=== PATIENT | female | born 2000 | race Caucasian/White ===

== ENCOUNTER 2020-03-16 21:15 | Emergency (ER) | payer OTHER ==
[2020-03-16 21:30] VITALS: BP 138/96; PULSE 86; TEMP 98.6; BMI 31.1
[2020-03-16] MEDS ORDERED: IBUPROFEN 600 MG TABLET (FP) PO ONE ×2 (21:32→21:35)
--- NOTE | 2020-03-16 21:36 | PDOC ---
History of Present Illness - General Chief Complaint: Injury Stated Complaint: LEFT ANKLE SPRAIN Time Seen by Provider: 03/16/20 21:32 History Source: Patient Exam Limitations: No Limitations - History of Present Illness Initial Comments: 03/16/20 21:33 HISTORY OF PRESENT ILLNESS: 19-year-old woman denies medical history presents emergency department for evaluation of left ankle pain status post hyperextension injury. Patient reports she was walking downstairs when she had 2 steps left she caught her toe on the tip of the step and hyperextended her ankle. Patient reports she fell to the ground and then proceeded to the emergency department for evaluation. No recent travel or sick contacts. PAST MEDICAL HISTORY: Denies past medical history SURGICAL HISTORY: Denies ALLERGIES: No known drug allergies REVIEW OF SYSTEMS General/Constitutional: Denies fever or chills. Denies weakness, weight change. HEENT: Denies change in vision. Denies ear pain or discharge. Denies sore throat. Cardiovascular: Denies chest pain or shortness of breath. Respiratory: Denies cough, wheezing, or hemoptysis. Gastrointestinal: Denies nausea, vomiting, diarrhea or constipation. Denies rectal bleeding. Genitourinary: Denies dysuria, frequency, or change in urination. Musculoskeletal: See HPI Skin and breasts: Denies rash or easy bruising. Neurologic: Denies headache, vertigo, loss of consciousness, or loss of sensation. Psychiatric: Denies depression or anxiety. Endocrine: Denies increased thirst. Denies abnormal weight change. Hematologic/Lymphatic: Denies anemia, easy bleeding, or history of blood clots. Allergic/Immunologic: Denies hives or skin allergy. Denies latex allergy. PHYSICAL EXAM General Appearance: Well-appearing, appropriately dressed. No apparent distres s, no intoxication. Vascular Pulses: Dorsalis-Pedis (R): 2+, Dorsalis-Pedis (L): 2+ Musculoskeletal/Extremities: Swelling present over the lateral malleolus of the left ankle. No bony tenderness, deformity, crepitus or step-off is present upon palpations of the bones of the lower leg, ankle and foot. No ecchymosis noted. Neurovascularly intact. Integumentary: Appropriate color, dry, warm. No cyanosis, erythema, jaundice or rash Past History - Medical History Allergies/Adverse Reactions: Allergies Allergy/AdvReac Type Severity Reaction Status Date / Time No Known Allergies Allergy Verified 06/11/13 22:17 Home Medications: Ambulatory Orders No Home Medications 0 dose .ROUTE UTDICT 06/11/13 COPD: No Other medical history: pcos - Immunization History Immunization Up to Date: Yes - Psycho-Social/Smoking History Smoking Status: No Smoking History: Never smoked Number of Cigarettes Smoked Daily: 0 - Substance Abuse Hx (Audit-C & DAST Scrn) How often the patient has a drink containing alcohol: Never Score: In Men: 4 or > Positive; In Women: 3 or > Positive: 0 Screen Result (Pos requires Nsg. Audit-10AR): Negative In the last yr the pt used illegal drug/Rx for NonMed reason: No Score: Yes response is considered Positive: 0 Screen Result (Positive result requires Nsg. DAST-10): Negative *Physical Exam - Vital Signs Last Vital Signs Temp Pulse Resp BP Pulse Ox 98.6 F 86 19 138/96 99 03/16/20 21:26 03/16/20 21:26 03/16/20 21:26 03/16/20 21:26 03/16/20 21:26 ED Treatment Course - RADIOLOGY Radiology Studies Ordered: Category Date Time Status ANKLE & FOOT-LEFT* [RAD] Stat Radiology 03/16/20 21:32 Ordered Medical Decision Making - Medical Decision Making 03/16/20 21:35 A/P: 19-year-old woman with left ankle pain status post hyperextension injury No bony deformity, crepitus, step-off present upon palpation of the bones of the left lower leg, ankle or foot Full range of motion of the left ankle including circumduction, extension and dorsiflexion 2+ DP pulses present bilaterally X-rays of the left foot and ankle Motrin 600 mg orally now Reassess 03/16/20 21:52 X-rays read by me: Mortise is intact. No acute fractures or dislocations are present. Aircast splint Jeancarlos wrap Discharge home with orthopedic follow-up I discussed the physical exam findings, ancillary test results and final diagnoses with the patient. I answered all of the patient's questions. The patient was satisfied with the care received and felt comfortable with the discharge plan and treatment plan. The patient will call their primary care physician within 24 hours to arrange follow-up and will return to the Emergency Department with any new, persistent or worsening symptoms. Portions of this note have been documented using voice recognition software. As a result, errors may occur in the e business manager process. Effort has been made to correct all grammatical and e business manager error, but some may have been missed which may produce sporadic inaccurate e business manager or nonsensical phrases. Discharge - Discharge Information Problems reviewed: Yes Clinical Impression/Diagnosis: Left ankle sprain Qualifiers: Encounter type: initial encounter Involved ligament of ankle: unspecified ligament Qualified Code(s): S93.402A - Sprain of unspecified ligament of left ankle, initial encounter Condition: Stable Disposition: HOME - Admission No - Follow up/Referral Referrals: Viet Shankar DO [Staff Physician] - - Patient Discharge Instructions Additional Instructions: You be given a referral for an orthopedist. Call to schedule appointment for reevaluation of your pain. Your emergency department visit is incomplete until you follow-up with your regular doctor. Take Tylenol 2-500 mg tablets every 6 hours as needed for pain. Take Motrin 3-200 mg tablets every 6 hours as needed for pain. These medications do not require a prescription as they are [id number]. Apply ice to affected areas to help relieve pain. Do not leave ice on for more than 20 minutes at a time. Return to the emergency department for any new or worsening symptoms. Thank you very much for choosing us to provide your emergent health care needs. - Post Discharge Activity Work/Back to School Note: Back to Work
== END 2020-03-16 22:28 | disposition home or self-care (01) ==
LOC: JER 21:15 → JERFT 21:15
DX: S93.402A Sprain of unspecified ligament of left ankle, initial encounter (principal); X50.9XXA Other and unspecified overexertion or strenuous movements or postures, initial encounter
CPT/HCPCS: 73610-TC-LT-FY; 73630-TC-LT; 99283-25

== ENCOUNTER 2020-10-20 00:14 | Emergency (ER) | payer OTHER ==
[2020-10-20 00:51] VITALS: BP 121/82; PULSE 83; TEMP 97.6; BMI 36.6
== END 2020-10-20 03:06 | disposition home or self-care (01) ==
LOC: JER 00:14
DX: S09.90XA Unspecified injury of head, initial encounter (principal)
CPT/HCPCS: 70450-TC; 99284-25

== ENCOUNTER 2023-02-04 14:26 | Emergency (ER) | payer OTHER ==
[2023-02-04 14:41] VITALS: BP 130/76; PULSE 100; RESP 18; TEMP 98.1; BMI 36.6
[2023-02-04] MEDS ORDERED: ACETAMINOPHEN 1000 MG/100 ML BAG IVPB ONE (15:04)
[2023-02-04] MEDS ORDERED: ONDANSETRON 4 MG TABLET PO ONE (15:12)
[2023-02-04] MEDS ORDERED: ACETAMINOPHEN INJECTION 100 ML IVPB ONE (15:13)
[2023-02-04] MEDS ORDERED: ONDANSETRON 4 MG/2 ML VIAL ONE (15:55)
[2023-02-04 16:07] LABS: BASO % 0.7 % (0-2.0); EOS % 1.4 % (0-4.5); HEMATOCRIT 37.8 % (32.4-45.2); HEMOGLOBIN 12.9 GM/dL (10.7-15.3); LYMPH % 22.5 % (8-40); MCH 29.2 pg (25.7-33.7); MCHC 34.1 g/dl (32.0-36.0); MEAN CELL VOLUME 85.4 fl (80-96); MONO % 4.3 % (3.8-10.2); NEUT % 71.1 % (42.8-82.8); PLATELET COUNT 305 10^3/uL (134-434); RBC 4.43 M/mm3 (3.60-5.2); RDW 14.2 % (11.6-15.6); WHITE BLOOD COUNT 11.6 K/mm3 (4.0-10.0)
[2023-02-04 16:18] LABS: EPI CELLS 6 /uL (0-25.1); HYALINE CASTS 2 /uL (0-3.1); PH,URINE 5.5 (5.0-8.0); URINE APPEARANCE CLEAR; URINE BACTERIA >9,000 /uL (0-1359); URINE BILIRUBIN NEGATIVE (NEGATIVE); URINE COLOR YELLOW; URINE GLUCOSE (UA) NEGATIVE (NEGATIVE); URINE KETONE NEGATIVE (NEGATIVE); URINE LEUK ESTERASE 2+ (NEGATIVE); URINE NITRITE POSITIVE (NEGATIVE); URINE PROTEIN TRACE (NEGATIVE); URINE RBC 21 /uL (0-23.9); URINE UROBILINOGEN 0.2 mg/dL (0.2-1.0); URINE WBC 347 /uL (0-25.8)
[2023-02-04 16:30] LABS: POTASSIUM 4.6 mmol/L (3.5-5.1)
[2023-02-04 16:32] LABS: ALBUMIN 3.6 g/dl (3.4-5.0); BLOOD UREA NITROGEN 13.4 mg/dL (7-18); CALCIUM 9.5 mg/dL (8.5-10.1)
[2023-02-04 16:35] LABS: CREATININE 0.6 mg/dL (0.55-1.3)
[2023-02-04] MEDS ORDERED: ONDANSETRON *ODT* 4 MG TABLET ONE (16:36)
[2023-02-04 16:37] LABS: BILIRUBIN,TOTAL 0.4 mg/dL (0.2-1); TOT PROT 7.7 g/dl (6.4-8.2)
[2023-02-04 16:40] LABS: HCG,QUALITATIVE URINE Negative
[2023-02-04] MEDS ORDERED: CEFTRIAXONE 1 GM in DEXTROSE 5%-WATER - 100 ML IVPB ONE (17:17)
[2023-02-04] MEDS ORDERED: CEFTRIAXONE 1 GM/50 ML BAG ONE (17:23)
== END 2023-02-04 18:34 | disposition home or self-care (01) ==
LOC: JER 14:26
PROC: 3E03329 Introduction of Other Anti-infective into Peripheral Vein, Percutaneous Approach (ICD-10-PCS; principal; 2023-02-04)
PROC: 3E033NZ Introduction of Analgesics, Hypnotics, Sedatives into Peripheral Vein, Percutaneous Approach (ICD-10-PCS; 2023-02-04)
DX: M54.9 Dorsalgia, unspecified (principal); R10.9 Unspecified abdominal pain; R11.0 Nausea; R10.813 Right lower quadrant abdominal tenderness; N39.0 Urinary tract infection, site not specified; N12 Tubulo-interstitial nephritis, not specified as acute or chronic
CPT/HCPCS: 36415; 76830-TC; 80053; 81003; 84703; 85025; 87086; 87186; 99284-25